=== PATIENT | male | born 2000 | race Caucasian/White ===

== ENCOUNTER 2020-10-08 23:09 | Emergency (ER) | payer OTHER ==
[2020-10-08 23:37] LABS: HEMOGLOBIN 17.6 gm/dl (14.0-17.5); RED BLOOD COUNT 5.56 M/UL (4.20-5.50); WHITE BLOOD COUNT 7.6 K/UL (4.5-11.0)
[2020-10-08 23:58] LABS: BUN/CREATININE RATIO 12 (0-10)
== END 2020-10-09 05:59 | disposition home or self-care (01) ==
LOC: ER1 23:09
PROVIDERS: Emergency Medicine; Physician Assistant
DX: F10.129 Alcohol abuse with intoxication, unspecified (principal); S00.83XA Contusion of other part of head, initial encounter; F12.90 Cannabis use, unspecified, uncomplicated; Y90.8 Blood alcohol level of 240 mg/100 ml or more; X58.XXXA Exposure to other specified factors, initial encounter
CPT/HCPCS: 36415; 70450; 71045; 80053; 80307; 81001; 83605; 83690; 85025; 96374; 99285; G0480; J2405; J7030